=== PATIENT | female | born 1960 | race Caucasian/White ===

== ENCOUNTER → 2018-04-03 | Outpatient (CLI) | payer OTHER ==
[2018-04-03 12:35] LABS: SEDIMENTATION RATE 6 (0-25)
[2018-04-03 23:11] LABS: RHEUMATOID FACTOR <10.0 IU/mL (0.0-13.9)
== END | disposition home or self-care (01) ==
LOC: RAD 10:24
DX: M72.2 Plantar fascial fibromatosis (principal)
CPT/HCPCS: 36415; 73630; 85651; 86431

== ENCOUNTER 2019-07-11 06:11 | Emergency (ER) | payer OTHER ==
[~2019-07-11] VITALS: Ht 157.5 cm; Wt 68.0 kg
[2019-07-11 06:56] LABS: BILIRUBIN,URINE NEGATIVE (NEG); CLARITY,URINE CLEAR; COLOR,URINE YELLOW; NITRITE,URINE NEGATIVE (NEG); PROTEIN,URINE NEGATIVE (NEG-TRACE); UROBILINOGEN,URINE 0.2 mg/dL (0.2 mg/dL)
--- NOTE | 2019-07-11 07:10 | EKG ---
[facility] [address] [place] [address] Test Date: 2019-07-11 Test Time: 06:41:40 Pat Name: VIMAL FLEMING Department: Room: Gender: F Sandwich Hand: : 1960 Requested By: GEN CUEVA Order Number: [id number] Reading MD: Measurements Intervals [place] Rate: 62 P: 50 HI: 128 QRS: 36 QRSD: 94 T: 36 QT: 434 QTc: 442 Interpretive Statements SINUS RHYTHM NORMAL ECG No previous ECG available for comparison
[2019-07-11 07:13] LABS: SQUAMOUS EPITHELIAL CELL,UR FEW /LPF
[2019-07-11 07:14] LABS: BACTERIA,URINE FEW /HPF (0-FEW); RBC,URINE OCC /HPF (0-2)
[2019-07-11] MEDS ORDERED: IV NORMAL SALINE 1000ML BAG 1,000 ML IV SCH (07:16)
--- NOTE | 2019-07-11 07:24 | RAD ---
Chest PA and lateral: Reason for examination: Right-sided chest pain since yesterday morning. The heart size is normal. Mediastinum is unremarkable. Lung santiago are clear. No acute bony abnormalities are seen. Impression: No acute cardiopulmonary disease. Electronically signed by: Mary Lou Fallon MD (07/11/2019 7:21 AM) [facility]
[2019-07-11] MEDS ORDERED: ONDANSETRON PF 4 MG/2 ML VIAL. IV ONE (07:30)
[2019-07-11] MEDS ORDERED: KETOROLAC 30 MG/ML VIAL. IV ONE (07:30)
--- NOTE | 2019-07-11 07:50 | PHYS DOC ---
Past Medical History Past Medical History: No Pertinent History Alcohol Use: Occasionally Drug Use: Marijuana Adult General Chief Complaint Chief Complaint: RIB PAIN HPI HPI Patient is a 59 year old female presented to ER today for evaluation of right flank pain and right-sided lower chest pain for 2 days. Patient says she was working in her garden couple days ago, did move some heavy limbs. Patient denies any injury, no nausea vomiting. She denies any urinary symptom, no trouble breathing, no cough. Patient said the pain get worse with movement or cough or taking a deep breath. She denies any recent travel or operation. Patient denies any history of blood clot disorder, she is not a smoker. She has no history of coronary artery disease. Review of Systems Review of Systems Constitutional: Denies fever or chills [] Eyes: Denies change in visual acuity, redness, or eye pain [] HENT: Denies nasal congestion or sore throat [] Respiratory: Denies cough or shortness of breath [] Cardiovascular: No additional information not addressed in HPI [] GI: Positive for right flank pain, NO pain, nausea, vomiting, bloody stools or diarrhea [] : Denies dysuria or hematuria [] Musculoskeletal: Denies back pain or joint pain [] Integument: Denies rash or skin lesions [] Neurologic: Denies headache, focal weakness or sensory changes [] Endocrine: Denies polyuria or polydipsia [] All other systems were reviewed and found to be within normal limits, except as documented in this note. Current Medications Current Medications Current Medications Medications (Trade) Dose Ordered Sig/[place] Start Time Stop Time Status Last Admin Dose Admin Ketorolac Tromethamine (Toradol 30mg Vial) 30 mg 1X ONCE 07/11/19 07:30 07/11/19 07:31 DC Ondansetron HCl (Zofran) 4 mg 1X ONCE 07/11/19 07:30 07/11/19 07:31 DC Sodium Chloride 1,000 ml @ 1,000 mls/hr Q1H 07/11/19 07:16 07/11/19 08:15 DC Allergies Allergies Allergies Coded Allergies Type Severity Reaction Last Updated Verified Penicillins Allergy Intermediate 07/11/19 Yes Physical Exam Physical Exam Constitutional: Well developed, well nourished, no acute distress, non-toxic appearance. [] HENT: Normocephalic, atraumatic, bilateral external ears normal, oropharynx moist, no oral exudates, nose normal. [] Eyes: PERRLA, EOMI, conjunctiva normal, no discharge. [] Neck: Normal range of motion, no tenderness, supple, no stridor. [] Cardiovascular:Heart rate regular rhythm, no murmur [] Lungs & Thorax: Bilateral breath sounds clear to auscultation [] Abdomen: Bowel sounds normal, soft, no tenderness, no masses, no pulsatile masses. [] Skin: Warm, dry, no erythema, no rash. [] Back: No tenderness, Positive for right CVA tenderness. [] Extremities: No tenderness, no cyanosis, no clubbing, ROM intact, no edema. [] Neurologic: Alert and oriented X 3, normal motor function, normal sensory function, no focal deficits noted. [] Psychologic: Affect normal, judgement normal, mood normal. [] Current Patient Data Vital Signs Vital Signs Date Time Temp Pulse Resp B/P (MAP) Pulse Ox O2 Delivery O2 Flow Rate FiO2 07/11/19 08:15 64 25 183/84 (117) 96 Room Air 07/11/19 06:15 98.4 98.4 Lab Values Laboratory Tests Test 07/11/19 06:30 07/11/19 08:15 Urine Collection Type Void Urine Color Yellow Urine Clarity Clear Urine pH 5.0 Urine Specific [place] 1.020 Urine Protein Negative mg/dL (NEG-TRACE) Urine Glucose (UA) Negative mg/dL (NEG) Urine Ketones (Stick) Negative mg/dL (NEG) Urine Blood Negative (NEG) Urine Nitrite Negative (NEG) Urine Bilirubin Negative (NEG) Urine Urobilinogen Dipstick 0.2 mg/dL (0.2 mg/dL) Urine Leukocyte Esterase Moderate (NEG) Urine RBC Occ /HPF (0-2) Urine WBC 5-10 /HPF (0-4) Urine Squamous Epithelial Cells Few /LPF Urine Bacteria Few /HPF (0-FEW) Urine Mucus Marked /LPF White Blood Count 7.7 x10^3/uL (4.0-11.0) Red Blood Count 4.55 x10^6/uL (3.50-5.40) Hemoglobin 13.8 g/dL (12.0-15.5) Hematocrit 39.8 % (36.0-47.0) Mean Corpuscular Volume 87 fL (79-100) Mean Corpuscular Hemoglobin 30 pg (25-35) Mean Corpuscular Hemoglobin Concent 35 g/dL (31-37) Red Cell Distribution Width 12.6 % (11.5-14.5) Platelet Count 243 x10^3/uL (140-400) Neutrophils (%) (Auto) 73 % (31-73) Lymphocytes (%) (Auto) 19 % (24-48) L Monocytes (%) (Auto) 6 % (0-9) Eosinophils (%) (Auto) 1 % (0-3) Basophils (%) (Auto) 1 % (0-3) Neutrophils # (Auto) 5.6 x10^3/uL (1.8-7.7) Lymphocytes # (Auto) 1.5 x10^3/uL (1.0-4.8) Monocytes # (Auto) 0.5 x10^3/uL (0.0-1.1) Eosinophils # (Auto) 0.1 x10^3/uL (0.0-0.7) Basophils # (Auto) 0.1 x10^3/uL (0.0-0.2) Sodium Level 139 mmol/L (136-145) Potassium Level 4.0 mmol/L (3.5-5.1) Chloride Level 104 mmol/L (98-107) Carbon Dioxide Level 25 mmol/L (21-32) Anion Gap 10 (6-14) Blood Urea Nitrogen 10 mg/dL (7-20) Creatinine 0.8 mg/dL (0.6-1.0) Estimated GFR (Cockcroft-Gault) 72.9 BUN/Creatinine Ratio 13 (6-20) Glucose Level 95 mg/dL (70-99) Calcium Level 9.2 mg/dL (8.5-10.1) Total Bilirubin 0.7 mg/dL (0.2-1.0) Aspartate Amino Transferase (AST) 18 U/L (15-37) Alanine Aminotransferase (ALT) 13 U/L (14-59) L Alkaline Phosphatase 83 U/L (46-116) Total Protein 7.2 g/dL (6.4-8.2) Albumin 3.8 g/dL (3.4-5.0) Albumin/Globulin Ratio 1.1 (1.0-1.7) Lipase 186 U/L (73-393) Laboratory Tests 07/11/19 08:15 Laboratory Tests 07/11/19 08:15 EKG EKG EKG WAS READ BY THIS PHYSICIAN AT 0642, RATE OF 62 BPM, SINUS RHYTHM, NO STEMI. Radiology/Procedures Radiology/Procedures [][address] [address] IMAGING REPORT Signed PATIENT: VIMAL FLEMING ACCOUNT: [id number] : 1960 LOCATION: ER AGE: 59 SEX: F EXAM STATUS: REG ER ORD. PHYSICIAN: GEN CUEVA DO REASON: right side chest pain since yesterday morning PROCEDURE: CHEST PA & LATERAL Chest PA and lateral: Reason for examination: Right-sided chest pain since yesterday morning. The heart size is normal. Mediastinum is unremarkable. Lung santiago are clear. No acute bony abnormalities are seen. Impression: No acute cardiopulmonary disease. Electronically signed by: Mary Lou Lemus MD (07/11/2019 7:21 AM) [facility] DICTATED and SIGNED BY: MARY LOU LEMUS MD DATE: 07/11/[address] [address] IMAGING REPORT Signed PATIENT: VIMAL FLEMING ACCOUNT: [id number] : 1960 LOCATION: ER AGE: 59 SEX: F EXAM STATUS: REG ER ORD. PHYSICIAN: GEN CUEVA DO REASON: right side flank pain PROCEDURE: CT ABDOMEN PELVIS WO CONTRAST Examination: CT ABDOMEN PELVIS WO CONTRAST History: Right flank pain Comparison/Correlation: None Findings: Axial images of the abdomen and pelvis were obtained without contrast. Sagittal and coronal reformatted images were provided. Visualized lung bases are clear. Small hiatal hernia is present. Gallbladder fossa is unremarkable. Right adrenal gland is unremarkable. Nodular appearance of left adrenal gland compatible with adenomatous involvement is noted. Spleen is unremarkable. Liver is normal. Gallbladder fossa is unremarkable. There are no radiopaque collecting system calculi. Moderate quantity of stool in the colon is present. Appendix is normal. Minimal diverticulosis of the colon noted. Urinary bladder is unremarkable. Uterus is unremarkable. No enlarged abdominal or pelvic lymph nodes. Degenerative changes of the low lumbar spine facet joints are present. Impression: No radiopaque collecting system calculi. The graft Hiatal hernia. PQRS Compliance Statement: One or more of the following individualized dose reduction techniques were utilized for this examination: 1. Automated exposure control 2. Adjustment of the mA and/or kV according to patient size 3. Use of iterative reconstruction technique Electronically signed by: Oseas Lara MD (07/11/2019 7:51 AM) [facility] DICTATED and SIGNED BY: OSEAS LARA MD DATE: 07/11/19 0751 Course & Med Decision Making Course & Med Decision Making Pertinent Labs and Imaging studies reviewed. (See chart for details) [] Dragon Disclaimer Dragon Disclaimer This electronic medical record was generated, in whole or in part, using a voice recognition dictation system. Departure Departure Impression: Primary Impression: Flank pain Additional Impression: UTI (urinary tract infection) Disposition: 01 HOME, SELF-CARE Condition: STABLE Referrals: MARGARETTE CHURCHILL MD (PCP) follow up with your doctor next week as needed Patient Instructions: Flank Pain, Urinary Tract Infection Scripts Nitrofurantoin Monohyd/M-Cryst (MACROBID 100 MG CAPSULE) 100 Mg Capsule 1 CAP PO BID, #20 CAP Prov: GEN CUEVA DO 07/11/19 Problem Qualifiers GEN CUEVA DO Jul 11, 2019 07:50
--- NOTE | 2019-07-11 07:54 | RAD ---
Examination: CT ABDOMEN PELVIS WO CONTRAST History: Right flank pain Comparison/Correlation: None Findings: Axial images of the abdomen and pelvis were obtained without contrast. Sagittal and coronal reformatted images were provided. Visualized lung bases are clear. Small hiatal hernia is present. Gallbladder fossa is unremarkable. Right adrenal gland is unremarkable. Nodular appearance of left adrenal gland compatible with adenomatous involvement is noted. Spleen is unremarkable. Liver is normal. Gallbladder fossa is unremarkable. There are no radiopaque collecting system calculi. Moderate quantity of stool in the colon is present. Appendix is normal. Minimal diverticulosis of the colon noted. Urinary bladder is unremarkable. Uterus is unremarkable. No enlarged abdominal or pelvic lymph nodes. Degenerative changes of the low lumbar spine facet joints are present. Impression: No radiopaque collecting system calculi. The graft Hiatal hernia. PQRS Compliance Statement: One or more of the following individualized dose reduction techniques were utilized for this examination: 1. Automated exposure control 2. Adjustment of the mA and/or kV according to patient size 3. Use of iterative reconstruction technique Electronically signed by: Oseas Stack MD (07/11/2019 7:51 AM) [facility]
[2019-07-11 08:15] VITALS: BP 183/84
[2019-07-11 08:30] LABS: BASO # 0.1 x10^3/uL (0.0-0.2); BASO % 1 % (0-3); EOS # 0.1 x10^3/uL (0.0-0.7); EOS % 1 % (0-3); HEMATOCRIT 39.8 % (36.0-47.0); HEMOGLOBIN 13.8 g/dL (12.0-15.5); LYMPH # 1.5 x10^3/uL (1.0-4.8); LYMPH % 19 % (24-48); MEAN CORPUSCULAR HEMOGLOBIN 30 pg (25-35); MEAN CORPUSCULAR HGB CONC 35 g/dL (31-37); MEAN CORPUSCULAR VOLUME 87 fL (79-100); MONO # 0.5 x10^3/uL (0.0-1.1); MONO % 6 % (0-9); NEUT # 5.6 x10^3/uL (1.8-7.7); NEUT % 73 % (31-73); PLATELET COUNT 243 x10^3/uL (140-400); RED BLOOD COUNT 4.55 x10^6/uL (3.50-5.40); RED CELL DISTRIBUTION WIDTH 12.6 % (11.5-14.5); WHITE BLOOD COUNT 7.7 x10^3/uL (4.0-11.0)
[2019-07-11 08:37] LABS: CALCIUM 9.2 mg/dL (8.5-10.1); CREATININE 0.8 mg/dL (0.6-1.0); GFR 72.9
[2019-07-11 08:43] LABS: ALBUMIN 3.8 g/dL (3.4-5.0); ALBUMIN/GLOBULIN RATIO 1.1 (1.0-1.7); TOTAL BILIRUBIN 0.7 mg/dL (0.2-1.0); TOTAL PROTEIN 7.2 g/dL (6.4-8.2)
[2019-07-11] MEDS ORDERED: NITR100C62 PO (09:07)
== END 2019-07-11 09:47 | disposition home or self-care (01) ==
LOC: ER 06:11
DX: N39.0 Urinary tract infection, site not specified (principal); Z88.0 Allergy status to penicillin
CPT/HCPCS: 36415; 71046; 74176; 80053; 81001; 83690; 85025; 87086; 93005; 99285-25